=== PATIENT | female | born 1990 | race Caucasian/White ===

== ENCOUNTER → 2016-10-15 | Outpatient (CLI) | payer MEDICAID | END | disposition home or self-care (01) | LOC: RADECHMAIN 12:06 | PROVIDERS: ATTEND Family Medicine | DX: R00.2 Palpitations (principal) | CPT/HCPCS: 93225; 93226 ==

== ENCOUNTER → 2019-06-25 | Outpatient (CLI) | payer MEDICAID ==
[2019-06-25 17:21] LABS: HCT 46.1 % (34.0-46.0); HGB 15.5 gm/dL (11.4-16.0); MCH 30.7 pg (25.0-35.0); MCHC 33.6 g/dL (31.0-37.0); MCV 91.4 fL (80.0-100.0); Mean Platelet Volume 6.3; Platelet Count 516 k/uL (150-450); RBC 5.05 m/uL (3.80-5.40); RDW 12.6 % (11.5-15.5); WBC 12.8 k/uL (3.8-10.6)
[2019-06-26 00:20] LABS: African American GFR (CKD) 100.8 (60.0-200.0); Albumin 4.8 g/dL (3.80-4.90); Albumin/Globulin Ratio 1.85 (1.60-3.17); Anion Gap 10.3 mmol/L (4.00-12.00); BUN/Creat Ratio 8.89 Ratio (12.00-20.00); Calcium 9.7 mg/dL (8.7-10.3); Carbon Dioxide 23.7 mmol/L (21.6-31.8); Chol/HDL Ratio 3.96; Globulin 2.6 g/dL (1.6-3.3); LDL Cholesterol,Calculated 120.8 mg/dL (0.0-131.0); Potassium 3.8 mmol/L (3.5-5.5); Total Bilirubin 0.3 mg/dL (0.2-1.2); Total Protein 7.4 g/dL (6.2-8.2); VLDL Calculation 18.2 mg/dL (5.00-40.00)
[2019-06-26 00:28] LABS: T4, Free (Free Thyroxine) 1.2 ng/dL (0.80-1.80)
[2019-06-26 01:58] LABS: Hemoglobin A1C 4.4 % (4.0-6.0)
== END | disposition home or self-care (01) ==
LOC: LABMAIN 14:31
PROVIDERS: ATTEND Family Medicine
DX: Z00.00 Encounter for general adult medical examination without abnormal findings (principal); D64.9 Anemia, unspecified; E03.9 Hypothyroidism, unspecified
CPT/HCPCS: 36415; 80053; 80061; 82306; 82607; 83036; 83540; 84439; 84443; 85027

== ENCOUNTER 2019-07-01 14:27 | Emergency (ER) | payer MEDICAID, OTHER ==
[2019-07-01 14:42] VITALS: BP 139/86; PULSE 89; RESP 18; TEMP 99.9
[2019-07-01] MEDS ORDERED: DIPH,PERTUS(ACELL)TETVAC-LF 0.5 ML VIAL IM ONE (15:36)
--- NOTE | 2019-07-01 15:36 | ED ---
General Adult HPI - General Chief complaint: Needlestick/Exposure Stated complaint: [facility]-Needlestick Time Seen by Provider: 07/01/19 14:43 Source: patient, RN notes reviewed Mode of arrival: ambulatory Limitations: no limitations - History of Present Illness Initial comments: This is a 28-year-old female who was stuck with a needle just prior to arrival. The needle being his back and other staff member that had been used for anesthesia. Patient states her last tetanus shot was about 12 years ago. She denies any other than minimal discomfort to the finger that was stuck. This is on the right hand fifth finger dorsal aspect. No other injuries no other modifying factors - Related Data Home Medications Medication Instructions Recorded Confirmed Levothyroxine Sodium [Synthroid] 50 mcg PO DAILY 10/26/15 10/26/15 buPROPion XL [Wellbutrin Xl] 150 mg PO DAILY 10/26/15 10/26/15 Previous Rx's Medication Instructions Recorded Ondansetron Odt [Zofran Odt] 4 mg PO Q6HR PRN #12 tab 10/27/15 Promethazine [Phenergan] 25 mg PO Q6HR PRN #20 tablet 10/27/15 Allergies Allergy/AdvReac Type Severity Reaction Status Date / Time No Known Allergies Allergy Verified 07/01/19 14:39 Review of Systems ROS Statement: Those systems with pertinent positive or pertinent negative responses have been documented in the HPI. ROS Other: All systems not noted in ROS Statement are negative. Past Medical History Past Medical History: Thyroid Disorder History of Any Multi-Drug Resistant Organisms: None Reported Past Surgical History: No Surgical Hx Reported Additional Past Surgical History / Comment(s): bilateral knee replacement Past Psychological History: Depression Smoking Status: Never smoker Past Alcohol Use History: None Reported Past Drug Use History: None Reported General Exam - General Exam Comments Initial Comments: This a well-developed well-nourished awake alert oriented x 3 female Limitations: no limitations General appearance: alert, in no apparent distress Head exam: Present: atraumatic, normocephalic, normal inspection Extremities exam: Present: full ROM, normal capillary refill, other (Gemmation right upper extremity demonstrates for minimal evidence of a new stick injury to the dorsal lateral aspect of the distal fifth finger no active bleeding no formed by seen. No sensorimotor or vascular deficit) Neurological exam: Present: alert, oriented X3, CN II-XII intact Psychiatric exam: Present: normal affect, normal mood Skin exam: Present: warm, dry, normal color. Absent: rash Course Vital Signs 07/01/19 14:40 Temperature 99.9 F H Pulse Rate 89 Respiratory 18 Rate Blood Pressure 139/86 O2 Sat by Pulse 97 Oximetry Medical Decision Making - Medical Decision Making The patient will be discharged she will receive a tetanus shot. No other and she is indicated at this time Disposition Clinical Impression: Needle stick injury of finger of right hand Disposition: HOME SELF-CARE Condition: Good Instructions (If sedation given, give patient instructions): Needle Stick Injuries (ED) Is patient prescribed a controlled substance at d/c from ED?: No Referrals: Wu Julian DO [Primary Care Provider] - 1-2 days
== END 2019-07-01 16:06 | disposition home or self-care (01) ==
LOC: EC 14:27
DX: S69.91XA Unspecified injury of right wrist, hand and finger(s), initial encounter (principal); E07.9 Disorder of thyroid, unspecified; F32.9 Major depressive disorder, single episode, unspecified; Z79.890 Hormone replacement therapy; Z79.899 Other long term (current) drug therapy; Z96.653 Presence of artificial knee joint, bilateral; Z23 Encounter for immunization; W46.1XXA Contact with contaminated hypodermic needle, initial encounter; Y93.89 Activity, other specified
CPT/HCPCS: 90471; 90715; 99282

== ENCOUNTER → 2020-02-03 | Outpatient (CLI) | payer MEDICAID | END | disposition home or self-care (01) | LOC: LABWHC1 11:50 | PROVIDERS: ATTEND Pediatrics Pediatric Infectious Diseases | DX: Z11.59 Encounter for screening for other viral diseases (principal) ==

== ENCOUNTER → 2020-10-07 | Outpatient (CLI) | payer MEDICAID | END | disposition home or self-care (01) | LOC: LABMAIN 17:03 | PROVIDERS: ATTEND Emergency Medicine | DX: R07.9 Chest pain, unspecified (principal) | CPT/HCPCS: 36415; 84484; 85379 ==

== ENCOUNTER 2023-11-03 04:56 | Observation (INO) | payer BC, OTHER ==
[2023-11-03] MEDS: KETOROLAC 15 MG/ML 1 ML VIAL IVP STA (06:06)
[2023-11-03] MEDS: PANTOPRAZOLE 40 MG/10 ML VIAL IVP STA (06:06)
[2023-11-03] MEDS: FAMOTIDINE 20 MG/2 ML VIAL IV STA (06:09)
[2023-11-03] MEDS: SODIUM CHLORIDE 0.9% 1,000 ML IV STA (06:09)
--- NOTE | 2023-11-03 06:12 | ED ---
Abdominal Pain HPI <Mayank Robertson - Last Filed: 11/03/23 10:24> - General Source: patient Mode of arrival: ambulatory <Klarissa Peña - Last Filed: 11/09/23 15:28> - General Chief Complaint: Abdominal Pain Stated Complaint: Abdominal Pain Time Seen by Provider: 11/03/23 05:20 - History of Present Illness Initial Comments: 32-year-old female with past medical history of thyroid disorder who presents emergency department reporting epigastric pain. States that symptoms were sudden onset while she was at work. She had pressure in her epigastric region which radiated through to her back. Patient has associated nausea with multiple episodes of nonbilious, nonbloody vomit. She denies any chest pain or shortness of breath. Denies any current black or bloody stools. Does admit to bloody stools 3 weeks ago however self resolved. She denies any urinary complaints. No dysuria, hematuria or difficulty voiding. Possible concern for . She admits to taking Motrin or Aleve a few times per week. No history of peptic ulcers. Denies alcohol use. No fevers. No cough. No other alleviating, precipitating modifying factors (Klarissa Peña) - Related Data Home Medications Medication Instructions Recorded Confirmed Levothyroxine Sodium [Synthroid] 50 mcg PO DAILY 10/26/15 11/03/23 Dextroamphetamine/Amphetamine 25 mg PO DAILY 11/03/23 11/03/23 [Adderall Xr 25 mg Capsule] Ergocalciferol (Vitamin D2) 1,250 mcg PO CULVER 11/03/23 11/03/23 [Drisdol (50,000 Iu)] buPROPion XL [Wellbutrin XL] 300 mg PO DAILY 11/03/23 11/03/23 Previous Rx's Medication Instructions Recorded Pantoprazole [Protonix] 40 mg PO AC-BID #60 tab 11/05/23 Allergies Allergy/AdvReac Type Severity Reaction Status Date / Time No Known Allergies Allergy Verified 11/03/23 10:08 Review of Systems ROS Other: All systems not noted in ROS Statement are negative. <Mayank Robertson - Last Filed: 11/03/23 10:24> ROS Other: All systems not noted in ROS Statement are negative. <Klarissa Peña - Last Filed: 11/09/23 15:28> ROS Statement: Those systems with pertinent positive or pertinent negative responses have been documented in the HPI. Past Medical History Past Medical History: Thyroid Disorder History of Any Multi-Drug Resistant Organisms: None Reported Past Surgical History: No Surgical Hx Reported Additional Past Surgical History / Comment(s): bilateral knee replacement Past Psychological History: Depression Past Alcohol Use History: None Reported Past Drug Use History: None Reported <Klarissa Peña Last Filed: 11/09/23 15:28> General Exam General appearance: alert, in no apparent distress Head exam: Present: atraumatic, normocephalic, normal inspection Eye exam: Present: normal appearance, PERRL, EOMI. Absent: scleral icterus, conjunctival injection, periorbital swelling ENT exam: Present: normal exam, mucous membranes moist Neck exam: Present: normal inspection. Absent: tenderness, meningismus, lymphadenopathy Respiratory exam: Present: normal lung sounds bilaterally. Absent: respiratory distress, wheezes, rales, rhonchi, stridor Cardiovascular Exam: Present: regular rate, normal rhythm, normal heart sounds. Absent: systolic murmur, diastolic murmur, rubs, gallop, clicks GI/Abdominal exam: Present: soft, tenderness (Left upper quadrant), normal bowel sounds. Absent: distended, guarding, rebound, rigid Extremities exam: Present: normal inspection, full ROM, normal capillary refill. Absent: tenderness, pedal edema, joint swelling, calf tenderness Back exam: Present: normal inspection Neurological exam: Present: alert, oriented X3, CN II-XII intact Psychiatric exam: Present: normal affect, normal mood Skin exam: Present: warm, dry, intact, normal color. Absent: rash <Klarissa Peña - Last Filed: 11/09/23 15:28> Course Vital Signs 11/03/23 11/03/23 11/03/23 05:16 06:50 10:00 Temperature 99 F Pulse Rate 94 101 H 93 Respiratory 18 20 18 Rate Blood Pressure 145/96 140/62 138/94 O2 Sat by Pulse 100 98 98 Oximetry 11/03/23 11/03/23 13:00 16:38 Temperature 98.9 F 98.1 F Pulse Rate 85 65 Respiratory 18 18 Rate Blood Pressure 133/84 137/79 O2 Sat by Pulse 98 100 Oximetry Medical Decision Making - Lab Data Result diagrams: 11/03/23 05:58 11/03/23 05:58 <Mayank Robertson - Last Filed: 11/03/23 10:24> - Lab Data Result diagrams: 11/03/23 05:58 11/03/23 05:58 <Klarissa Peña - Last Filed: 11/09/23 15:28> - Medical Decision Making Was patient admitted / discharged? Hospital course, mention meds given and route, prescriptions, significant lab abnormalities, going to OR and other pertinent info. @ -I went back to reevaluate the patient she continued to have pain. I gave her more pain medications but the pain persisted so I spoke with Dr. Julian and he gloria kendell to admit the patient admit the patient to consult Dr. Orr Undiagnosed new problem with uncertain prognosis? @ -No Drug Therapy requiring intensive monitoring for toxicity (Heparin, Nitro, Insuli n, Cardizem)? @ -No Were any procedures done? @ -No Diagnosis/symptom? @ -Epigastric abdominal pain Acute, or Chronic, or Acute on Chronic? @ -Acute Uncomplicated (without systemic symptoms) or Complicated (systemic symptoms)? @ -Complicated Side effects of treatment? @ -No Exacerbation, Progression, or Severe Exacerbation? @ -No Poses a threat to life or bodily function? How? (Chest pain, USA, [place], pneumonia, PE, COPD, DKA, ARF, appy, cholecystitis, CVA, Diverticulitis, Homicidal, Suicidal, threat to staff... and all critical care pts) @ -No (Mayank Robertson) Was pt. sent in by a medical professional or institution (, PA, ASSOCIATE SOFTWARE DEVELOPER, urgent care, hospital, or custodial...) When possible be specific @ -No Did you speak to anyone other than the patient for history (EMS, parent, family, police, friend...)? What history was obtained from this source @ -No Did you review nursing and triage notes (agree or disagree)? Why? @ -I reviewed and agree with nursing and triage notes Were old charts reviewed (outside hosp., previous admission, EMS record, old EKG, old radiological studies, urgent care reports/EKG's, custodial records)? Report findings @ -No old charts were reviewed Differential Diagnosis (chest pain, altered mental status, abdominal pain women, abdominal pain men, vaginal bleeding, weakness, fever, dyspnea, syncope, headache, dizziness, GI bleed, back pain, seizure, CVA, palpatations, mental health, musculoskeletal)? @ -Differential Abdominal Pain Women: Appendicitis, Cholecystitis, diverticulosis, ischemic bowel, pancreatitis, hepatitis, UTI, gastroenteritis, AAA, incarcerated hernia, bowel obstruction, constipation, inflammatory bowel, hepatitis, peptic ulcer disease, splenic infarction, perforated viscus, vulvitis, ovarian torsion, PID, kidney stone, placenta abruption, this is not meant to be an all-inclusive list EKG interpreted by me (3pts min.). @ -Yes and demonstrates sinus rhythm with a rate of 89. MI interval 139. QRS 85. QTc of 386. No acute ST segment elevations or depressions X-rays interpreted by me (1pt min.). @ -None done CT interpreted by me (1pt min.). @ -None done U/S interpreted by me (1pt. min.). @ -Pending at this time What testing was considered but not performed or refused? (CT, X-rays, U/S, labs)? Why? @ -None What meds were considered but not given or refused? Why? @ -None Did you discuss the management of the patient with other professionals (professionals i.e. , PA, ASSOCIATE SOFTWARE DEVELOPER, lab, RT, psych nurse, social services coordinator, design engineer, teacher, navigating officer, case operator)? Give summary @ -Dr. Robertson who will take over care of the patient Was smoking cessation discussed for >3mins.? @ -No Was critical care preformed (if so, how long)? @ -No Were there social determinants of health that impacted care today? How? (Homelessness, low income, unemployed, alcoholism, drug addiction, transportation, low edu. Level, literacy, decrease access to med. care, shelter, rehab)? @ -No Was there de-escalation of care discussed even if they declined (Discuss DNR or withdrawal of care, Hospice)? DNR status @ -No What co-morbidities impacted this encounter? (DM, HTN, Smoking, COPD, CAD, Cancer, CVA, ARF, Chemo, Hep., AIDS, mental health diagnosis, sleep apnea, morbid obesity)? @ -None Was patient admitted / discharged? Hospital course, mention meds given and route, prescriptions, significant lab abnormalities, going to OR and other pertinent info. @ -Upon arrival patient placed into room 22. Thorough history and physical exam was performed. IV access was established. Laboratory studies are co nducted. Patient administered Toradol, Pepcid and Protonix. Ultrasound is ordered and pending at this time. Patient will be signed out to oncoming physician Dr. Robertson ([facility]) - Lab Data Lab Results 11/03/23 11/03/23 11/03/23 Range/Units 05:58 05:58 05:58 WBC 10.9 H (3.8-10.6) k/uL RBC 4.94 (3.80-5.40) m/uL Hgb 14.5 (11.4-16.0) gm/dL Hct 45.0 (34.0-46.0) % MCV 91.1 (80.0-100.0) fL MCH 29.4 (25.0-35.0) pg MCHC 32.3 (31.0-37.0) g/dL RDW 12.9 (11.5-15.5) % Plt Count 398 (150-450) k/uL MPV 6.7 Neutrophils % 88 % Lymphocytes % 7 % Monocytes % 3 % Eosinophils % 1 % Basophils % 1 % Neutrophils # 9.6 H (1.3-7.7) k/uL Lymphocytes # 0.8 L (1.0-4.8) k/uL Monocytes # 0.3 (0-1.0) k/uL Eosinophils # 0.1 (0-0.7) k/uL Basophils # 0.1 (0-0.2) k/uL Sodium (137-145) mmol/L Potassium (3.5-5.1) mmol/L Chloride (98-107) mmol/L Carbon Dioxide (22-30) mmol/L Anion Gap mmol/L BUN (7-17) mg/dL Creatinine (0.52-1.04) mg/dL Est GFR (CKD-EPI)AfAm (>60 ml/min/1.73 sqM) Est GFR (CKD-EPI)NonAf (>60 ml/min/1.73 sqM) Glucose (74-99) mg/dL Plasma Lactic Acid Brett (0.7-2.0) mmol/L Calcium (8.4-10.2) mg/dL Total Bilirubin (0.2-1.3) mg/dL AST (14-36) U/L ALT (4-34) U/L Alkaline Phosphatase (38-126) U/L Total Protein (6.3-8.2) g/dL Albumin (3.5-5.0) g/dL Lipase (23-300) U/L Urine Color Yellow Urine Appearance Clear (Clear) Urine pH 6.5 (5.0-8.0) Ur Specific [place] 1.023 (1.001-1.035) Urine Protein Trace H (Negative) Urine Glucose (UA) Negative (Negative) Urine Ketones Negative (Negative) Urine Blood Negative (Negative) Urine Nitrite Negative (Negative) Urine Bilirubin Negative (Negative) Urine Urobilinogen <2.0 (<2.0) mg/dL Ur Leukocyte Esterase Negative (Negative) Urine HCG, Qual Not Detected (Not Detectd) 11/03/23 11/03/23 Range/Units 05:58 05:58 WBC (3.8-10.6) k/uL RBC (3.80-5.40) m/uL Hgb (11.4-16.0) gm/dL Hct (34.0-46.0) % MCV (80.0-100.0) fL MCH (25.0-35.0) pg MCHC (31.0-37.0) g/dL RDW (11.5-15.5) % Plt Count (150-450) k/uL MPV Neutrophils % % Lymphocytes % % Monocytes % % Eosinophils % % Basophils % % Neutrophils # (1.3-7.7) k/uL Lymphocytes # (1.0-4.8) k/uL Monocytes # (0-1.0) k/uL Eosinophils # (0-0.7) k/uL Basophils # (0-0.2) k/uL Sodium 137 (137-145) mmol/L Potassium 4.2 (3.5-5.1) mmol/L Chloride 104 (98-107) mmol/L Carbon Dioxide 23 (22-30) mmol/L Anion Gap 10 mmol/L BUN 10 (7-17) mg/dL Creatinine 0.81 (0.52-1.04) mg/dL Est GFR (CKD-EPI)AfAm >90 (>60 ml/min/1.73 sqM) Est GFR (CKD-EPI)NonAf >90 (>60 ml/min/1.73 sqM) Glucose 92 (74-99) mg/dL Plasma Lactic Acid Brett 1.0 (0.7-2.0) mmol/L Calcium 9.5 (8.4-10.2) mg/dL Total Bilirubin 0.9 (0.2-1.3) mg/dL AST 34 (14-36) U/L ALT 44 H (4-34) U/L Alkaline Phosphatase 83 (38-126) U/L Total Protein 8.1 (6.3-8.2) g/dL Albumin 4.4 (3.5-5.0) g/dL Lipase 57 (23-300) U/L Urine Color Urine Appearance (Clear) Urine pH (5.0-8.0) Ur Specific [place] (1.001-1.035) Urine Protein (Negative) Urine Glucose (UA) (Negative) Urine Ketones (Negative) Urine Blood (Negative) Urine Nitrite (Negative) Urine Bilirubin (Negative) Urine Urobilinogen (<2.0) mg/dL Ur Leukocyte Esterase (Negative) Urine HCG, Qual (Not Detectd) Disposition Time of Disposition: 10:29 <Mayank Robertson - Last Filed: 11/03/23 10:24> <Klarissa Peña - Last Filed: 11/09/23 15:28> Clinical Impression: Epigastric abdominal pain Disposition: ADMITTED IP TO THIS HOSP
[2023-11-03 06:20] LABS: Basophils # (A) 0.1 k/uL (0-0.2); Basophils % (A) 1 %; Eosinophils # (A) 0.1 k/uL (0-0.7); Eosinophils % (A) 1 %; HGB 14.5 gm/dL (11.4-16.0); Lymphocytes # (A) 0.8 k/uL (1.0-4.8); Lymphocytes % (A) 7 %; MCH 29.4 pg (25.0-35.0); MCHC 32.3 g/dL (31.0-37.0); MCV 91.1 fL (80.0-100.0); Mean Platelet Volume 6.7; Monocytes # (A) 0.3 k/uL (0-1.0); Monocytes % (A) 3 %; Neutrophils # (A) 9.6 k/uL (1.3-7.7); Neutrophils % (A) 88 %; Platelet Count 398 k/uL (150-450); RBC 4.94 m/uL (3.80-5.40); RDW 12.9 % (11.5-15.5); WBC 10.9 k/uL (3.8-10.6)
[2023-11-03 06:21] LABS: Appearance,Urine Clear (Clear); Bilirubin,Urine Negative (Negative); Blood,Urine Negative (Negative); Color,Urine Yellow; Glucose,Urine (UA) Negative (Negative); Ketones,Urine Negative (Negative); Leukocyte Esterase,Urine Negative (Negative); Nitrite,Urine Negative (Negative); PH, Urine 6.5 (5.0-8.0); Protein,Urine Trace (Negative); Specific Gravity,Urine 1.023 (1.001-1.035); Urobilinogen,Urine <2.0 mg/dL (<2.0)
[2023-11-03] MEDS: ONDANSETRON 4 MG/2 ML VIAL IVP STA (06:56)
[2023-11-03 06:57] LABS: ALT 44 U/L (4-34); AST 34 U/L (14-36); African American GFR (CKD) >90 (>60 ml/min/1.73 sqM); Albumin 4.4 g/dL (3.5-5.0); Alkaline Phosphatase 83 U/L (38-126); Anion Gap 10 mmol/L; Blood Urea Nitrogen 10 mg/dL (7-17); Calcium 9.5 mg/dL (8.4-10.2); Carbon Dioxide 23 mmol/L (22-30); Chloride 104 mmol/L (98-107); Glucose 92 mg/dL (74-99); Lipase 57 U/L (23-300); Non-African American GFR(CKD) >90 (>60 ml/min/1.73 sqM); Potassium 4.2 mmol/L (3.5-5.1); Sodium 137 mmol/L (137-145); Total Bilirubin 0.9 mg/dL (0.2-1.3); Total Protein 8.1 g/dL (6.3-8.2)
[2023-11-03] MEDS: MORPHINE SULFATE 4 MG/ML SYRINGE IVP STA ×2 (06:57→08:52)
--- NOTE | 2023-11-03 07:32 | US ---
EXAMINATION TYPE: US gallbladder DATE OF EXAM: 11/03/2023 COMPARISON: NONE CLINICAL INDICATION: Female, 32 years old with history of epigastric pain; TECHNIQUE: Multiple sonographic images of the right upper quadrant are obtained. FINDINGS: EXAM MEASUREMENTS: Liver Length: 17.5 cm Gallbladder Wall: 0.2 cm CBD: 0.5 cm Right Kidney: 10.7 x 4.7 x 4.4 cm COVER MARKER NOTES: Pancreas: Tail obscured by overlying bowel gas Liver: Slightly enlarged Gallbladder: wnl Evidence for sonographic Funk's sign: No CBD: wnl Right Kidney: wnl IMPRESSION: 1. Hepatomegaly
[2023-11-03] MEDS: SODIUM CHLORIDE 0.9% 1,000 ML IV ONE (11:00)
--- NOTE | 2023-11-03 12:37 | P.CONS ---
History of Present Illness - Reason for Consult Consult date: 11/03/23 Epigastric pain Requesting physician: Mayank Robertson - Chief Complaint Epigastric pain - History of Present Illness This pleasant 32-year-old female who presented to the emergency department with complaints of epigastric pressure that proceeded to be a dull pain which she described as tight and crampy followed by vomiting and heart palpitations. Symptoms began yesterday morning and progressed throughout the day she began to have left upper quadrant pain with continued vomiting. States that she still has some epigastric discomfort, she has been having hiccups and after the hiccups she will have a sharp pain. She states that she has chronically loose bowel movements. She does report taken frequent Aleve for headaches and back pain. Denies any previous similar symptoms. No history of peptic ulcer disease. No previous endoscopic evaluations in the past. Labs WBC 10.9 hemoglobin 14.4 hematocrit 45 platelet count 398,000 sodium 137 potassium 4.2 BUN 10 creatinine 0.8 total bilirubin 0.9 AST 34 ALT 44 alkaline phosphatase 83 lipase 57 Gallbladder ultrasound reported hepatomegaly. Normal gallbladder. Review of Systems REVIEW OF SYSTEMS: CARDIOPULMONARY: No chest pain or shortness of breath. Gastrointestinal: Epigastric pain and left upper quadrant pain. Nausea and vomiting. No hematemesis, coffee-ground emesis. No rectal bleeding, or melena. GENITOURINARY: No dysuria or hematuria. MUSCULOSKELETAL: Reports normal range of motion. SKIN: No rashes. No jaundice. ENDOCRINE: No chills, fevers. No excessive weight gain or loss. No polydipsia or polyuria. PSYCHIATRIC: Unremarkable. NEUROLOGY: No change in mental status. Denies dizziness, headache. ENT: Vision unremarkable. CONSTITUTIONAL: No recent weight loss. No fever, chills, night sweats. Past Medical History Past Medical History: Thyroid Disorder History of Any Multi-Drug Resistant Organisms: None Reported Past Surgical History: No Surgical Hx Reported Additional Past Surgical History / Comment(s): bilateral knee replacement Past Psychological History: Depression Past Alcohol Use History: None Reported Past Drug Use History: None Reported Medications and Allergies Home Medications Medication Instructions Recorded Confirmed Type Levothyroxine Sodium [Synthroid] 50 mcg PO DAILY 10/25/11/03/23 History Dextroamphetamine/Amphetamine 25 mg PO DAILY 11/03/23 11/03/23 History [Adderall Xr 25 mg Capsule] Ergocalciferol (Vitamin D2) 1,250 mcg PO CULVER 11/03/23 11/03/23 History [Drisdol (50,000 Iu)] buPROPion XL [Wellbutrin XL] 300 mg PO DAILY 11/03/23 11/03/23 History Allergies Allergy/AdvReac Type Severity Reaction Status Date / Time No Known Allergies Allergy Verified 11/03/23 10:08 Physical Exam Vitals: Vital Signs Temp Pulse Resp BP Pulse Ox 11/03/23 06:50 101 H 20 140/62 98 11/03/23 05:16 99 F 94 18 145/96 100 Intake and Output 11/02/23 11/03/23 11/03/23 22:59 06:59 14:59 Other: Weight 124.738 kg General appearance: The patient is alert, oriented, appears in no acute distress. HET: Head is normocephalic and atraumatic. Conjunctiva pink. Sclera anicteric. Neck: Supple without lymphadenopathy. Trachea midline. Heart: Regular. Lungs: Equal expansion, normal respiratory effort. Abdomen: Soft, left upper quadrant tenderness, nondistended with bowel sounds. No guarding or rigidity. Skin: No rashes. No jaundice. Extremities: Normal skin color and turgor. No pedal edema. Neurological: No focal deficits. Alert and oriented x3. Results CBC & Chem 7: 11/03/23 05:58 11/03/23 05:58 Labs: Abnormal Lab Results - Last 24 Hours (Table) 11/03/23 11/03/23 11/03/23 Range/Units 05:58 05:58 05:58 WBC 10.9 H (3.8-10.6) k/uL Neutrophils # 9.6 H (1.3-7.7) k/uL Lymphocytes # 0.8 L (1.0-4.8) k/uL ALT 44 H (4-34) U/L Urine Protein Trace H (Negative) Comments: Gallbladder ultrasound reports hepatomegaly Assessment and Plan (1) Epigastric abdominal pain Narrative/Plan: 32-year-old female who presented with epigastric pain and pressure associated with nausea and vomiting and radiating over to the left upper quadrant as well. Does have chronic NSAID use for headaches and back pain. Unclear etiology of epigastric pain however possible etiologies could be peptic ulcer disease with chronic NSAID use. Will recommend proceeding with upper endoscopy. Continue with Protonix 40 mg daily. Current Visit: Yes Status: Acute Code(s): R10.13 - EPIGASTRIC PAIN SNOMED Code(s): 97899388 (2) Nausea and vomiting Current Visit: Yes Status: Acute Code(s): R11.2 - NAUSEA WITH VOMITING, UNSPECIFIED SNOMED Code(s): 00702032 (3) Left upper quadrant pain Current Visit: Yes Status: Acute Code(s): R10.12 - LEFT UPPER QUADRANT PAIN SNOMED Code(s): 830090943 Plan: 1. Continue symptomatic and supportive care 2. Protonix 40 mg daily 3. Clear liquid diet, n.p.o. after midnight 4. Avoid NSAIDs 5. Will proceed with upper endoscopy tomorrow Thank you for this consultation, we will continue to follow. Dr. Melisa Pope I agree with the dictator's note, documented as a scribe by Conchis Ricketts.
[2023-11-03] MEDS: MORPHINE SULFATE 2 MG/ML SYRINGE IVP PRN (14:59)
[2023-11-03] MEDS: ONDANSETRON 4 MG/2 ML VIAL IVP PRN (22:41)
[2023-11-04] MEDS: MORPHINE SULFATE 4 MG/ML SYRINGE IVP PRN (06:38)
--- NOTE | 2023-11-04 11:25 | P.HPIM ---
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 Reports on Friday night midepigastric pain radiated to her left rib cage. Attempted Toradol, relieved left rib cage pain but continued to have midepigastric pain accompanied by cramping. Normally takes NSAIDs for chronic back and joint pain. Denies chest pain, palpitations or shortness of breath. Denies history of peptic ulcer disease. Gallbladder ultrasound reported hepatomegaly, normal gallbladder and CBD.Afebrile, WBC 10.9, lactic acid 1. Hemoglobin 14.4,platelets 398 sodium 137 potassium 4.2 bicarb 23 BUN 10 creatinine 0.81 total bilirubin 0.9 AST 34 ALT 44 alkaline phosphatase 83 lipase 57. UA negative. Review of Systems ROS Statement: Those systems with pertinent positive or pertinent negative responses have been documented in the HPI. ROS Other: All systems not noted in ROS Statement are negative. Past Medical History Past Medical History: Thyroid Disorder History of Any Multi-Drug Resistant Organisms: None Reported Past Surgical History: No Surgical Hx Reported Additional Past Surgical History / Comment(s): bilateral knee replacement Past Anesthesia/Blood Transfusion Reactions: No Reported Reaction Past Psychological History: No Psychological Hx Reported, Depression Smoking Status: Never smoker Past Alcohol Use History: None Reported Past Drug Use History: None Reported Medications and Allergies Home Medications Medication Instructions Recorded Confirmed Type Levothyroxine Sodium [Synthroid] 50 mcg PO DAILY 10/26/15 11/03/23 History Dextroamphetamine/Amphetamine 25 mg PO DAILY 11/03/23 11/03/23 History [Adderall Xr 25 mg Capsule] Ergocalciferol (Vitamin D2) 1,250 mcg PO CULVER 11/03/23 11/03/23 History [Drisdol (50,000 Iu)] buPROPion XL [Wellbutrin XL] 300 mg PO DAILY 11/03/23 11/03/23 History Allergies Allergy/AdvReac Type Severity Reaction Status Date / Time No Known Allergies Allergy Verified 11/03/23 10:08 Physical Exam Vitals: Vital Signs Temp Pulse Pulse Resp BP BP Pulse Ox 11/04/23 07:00 98.2 F 80 17 117/80 97 11/04/23 01:32 98.2 F 87 16 130/69 98 11/03/23 19:39 98.2 F 82 16 164/99 100 11/03/23 16:38 98.1 F 65 18 137/79 100 11/03/23 13:00 98.9 F 85 18 133/84 98 Intake and Output 11/03/23 11/04/23 11/04/23 22:59 06:59 14:59 Other: # Voids 1 2 Weight 124.738 kg PHYSICAL EXAM: VITAL SIGNS: [As above] GENERAL: Alert and oriented x 3, sitting up in bed, no acute distress, no jaundice HEENT: Normocephalic, atraumatic conjunctivae normal. eyes normal. Sclera nonicteric. NECK: Supple, no JVD. No thyroid enlargement. No LNs CARDIOVASCULAR: S1, S2 regular.. No murmur RESPIRATION: Unlabored, equal air entry, clear to auscultation, bilateral bases diminished. ABDOMEN: Soft, nondistended, mid epigastric to left upper quadrant tenderness. No guarding. no masses palpable. No ascites, No hepatosplenomegaly.Bowel sounds heard. LEGS: No edema. no swelling NERVOUS SYSTEM: Cranial N 2-12 grossly normal. No focal deficits. Strength and sensation grossly intact.. Skin: Warm and dry, no rash Results CBC & Chem 7: 11/03/23 05:58 11/03/23 05:58 Thrombosis Risk Factor Assmnt - Choose All That Apply Any of the Below Risk Factors Present?: No Other Risk Factors: No Other congenital or acquired thrombophilia - If yes, enter type in comment: No Thrombosis Risk Factor Assessment Level: Very Low Risk Assessment and Plan Assessment: Epigastric, left upper quadrant abdominal pain accompanied with nausea and vomiting, taking NSAIDs Morbid obesity, BMI 47 Hypothyroidism History of depression Chronic back pain, history of bilateral knee replacements Plan: Continue on current medication regimen ,monitoring and symptomatic treatment. PPI for GI prophylaxis. No NSAIDs, n.p.o. for EGD today. Possible discharge home later today pending endoscopy results. The impression and plan of care has been dictated as directed. : I performed a history and examination of this patient, discussed the same with the dictator. I agree with the dictator's note ,documented as a scribe. Any additional findings or plans will be noted.
[2023-11-04] MEDS: IV FLUID CONTINUATION 1,000 ML IV ONE (13:17)
[2023-11-04] MEDS ORDERED: PROPOFOL 10 MG/ML 20 ML VIAL IV ONE (13:20)
[2023-11-04] MEDS ORDERED: LIDOCAINE 2% (PF) 20 MG/ML 5 ML VIAL ONE (13:20)
--- NOTE | 2023-11-04 13:30 | P.PCN ---
Date of Procedure: 11/04/23 Procedure(s) Performed: BRIEF HISTORY: Patient is a 32-year-old, pleasant, White pleasant female scheduled for an upper endoscopy as a part of evaluation of severe epigastric pain for the last 2 days' duration.. PROCEDURE PERFORMED: Esophagogastroduodenoscopy With biopsy. PREOPERATIVE DIAGNOSIS: Severe epigastric pain of 2 days' duration. IV sedation per anesthesia. PROCEDURE: After informed consent was obtained, the patient was brought into the endoscopy unit. IV sedation was administered by Anesthesia under continuous monitoring. Initially the Olympus GIF-140 video endoscope was inserted into the mouth. Esophagus intubated without any difficulty. It was gradually advanced into the stomach and duodenum and carefully examined. The bulb Had mild duodenitisand the second part of the duodenum appeared normal. The scope at this time was withdrawn to the stomach, adequately insufflated with air, and upon careful examination, mucosa of the antrum,Had mild gastritis and biopsies were done from this area. Mucosa of the body, cardia and the fundus appeared normal. The scope was then withdrawn into the esophagus. The GE junction was located at 39 cm from the incisors. The esophagus appeared normal. There were no erosions or ulcerations seen and the patient tolerated the procedure well. IMPRESSION: 1.Mild antral gastritis but no evidence of peptic ulcer disease 2.Mild duodenitis. RECOMMENDATIONS: The findings of this examination were discussed with the patient . Diet will be advanced as tolerated. Continue with Protonix 40 mg twice daily..
[2023-11-04] MEDS: PANTOPRAZOLE 40 MG TABLET PO SCH (17:53)
[2023-11-05 09:16] VITALS: BP 119/78; PULSE 67; RESP 17; TEMP 97.3
--- NOTE | 2023-11-05 11:26 | P.PN ---
Subjective Progress Note Date: 11/05/23 Principal diagnosis: Epigastric pain This pleasant 32-year-old female who presented to the emergency department with complaints of epigastric pressure that proceeded to be a dull pain which she described as tight and crampy followed by vomiting and heart palpitations. Symptoms began yesterday morning and progressed throughout the day she began to have left upper quadrant pain with continued vomiting. States that she still has some epigastric discomfort, she has been having hiccups and after the hiccups she will have a sharp pain. She states that she has chronically loose bowel movements. She does report taken frequent Aleve for headaches and back pain. Denies any previous similar symptoms. No history of peptic ulcer disease. No previous endoscopic evaluations in the past. Labs WBC 10.9 hemoglobin 14.4 hematocrit 45 platelet count 398,000 sodium 137 potassium 4.2 BUN 10 creatinine 0.8 total bilirubin 0.9 AST 34 ALT 44 alkaline phosphatase 83 lipase 57 Gallbladder ultrasound reported hepatomegaly. Normal gallbladder. 11/05/2023 Patient seen and examined today as a follow-up. Yesterday she underwent an upper endoscopy with findings of mild gastritis and mild duodenitis. Today she states abdominal pain is improved. She has no nausea or vomiting. She is tolerating small amounts of food. Plan is for discharge home today. Objective - Vital Signs Vital signs: Vital Signs Temp 97.3 F L 11/05/23 07:00 Pulse 67 11/05/23 07:00 Resp 17 11/05/23 07:00 BP 119/78 11/05/23 07:00 Pulse Ox 99 11/05/23 07:00 FiO2 Intake & Output 11/04/23 11/05/23 11/05/23 18:59 06:59 18:59 Intake Total 700 118 Balance 700 118 Intake: IV 100 Oral 600 118 Other: Voiding Method Toilet # Voids 2 1 - Exam General appearance: The patient is alert, oriented, appears in no acute distress. HET: Head is normocephalic and atraumatic. Conjunctiva pink. Sclera anicteric. Neck: Supple without lymphadenopathy. Abdomen: Soft, nontender, nondistended with bowel sounds. No guarding or rigidity. Extremities: Normal skin color and turgor. No pedal edema Skin: No rashes, no jaundice Neurological: No focal deficits. Alert and oriented. - Labs CBC & Chem 7: 11/03/23 05:58 11/03/23 05:58 Assessment and Plan (1) Epigastric abdominal pain Narrative/Plan: 32-year-old female who presented with epigastric pain and pressure associated with nausea and vomiting and radiating over to the left upper quadrant as well. Does have chronic NSAID use for headaches and back pain. Unclear etiology of ep igastric pain however possible etiologies could be peptic ulcer disease with chronic NSAID use. Will recommend proceeding with upper endoscopy. Continue with Protonix 40 mg daily. Patient is status post upper endoscopy with no significant findings to explain epigastric pain. No peptic ulcer disease noted. Recommend continuing Protonix 40 mg twice daily and following up with gastroenterology for biopsy results. Likely viral enteritis. Current Visit: Yes Status: Acute Code(s): R10.13 - EPIGASTRIC PAIN SNOMED Code(s): 90353303 (2) Nausea and vomiting Current Visit: Yes Status: Acute Code(s): R11.2 - NAUSEA WITH VOMITING, UNSPECIFIED SNOMED Code(s): 34934954 (3) Left upper quadrant pain Current Visit: Yes Status: Acute Code(s): R10.12 - LEFT UPPER QUADRANT PAIN SNOMED Code(s): 372186864 Plan: 1. Continue symptomatic and supportive care 2. Continue Protonix 40 mg twice daily 3. Diet as tolerated 4. Avoid NSAIDs 5. Patient is cleared for discharge Thank you for this consultation, we will sign off at this time. Patient instructed to call office or have follow-up appointment for biopsy results Dr. Melisa Pope I agree with the dictator's note, documented as a scribe by Conchis Ricketts.
== END 2023-11-05 11:18 | disposition home or self-care (01) ==
LOC: EC 04:56 → 6NMEDSUR 10:30
PROVIDERS: ADMIT Family Medicine; ATTEND Family Medicine
DX: R10.13 Epigastric pain (principal); K29.70 Gastritis, unspecified, without bleeding; K29.80 Duodenitis without bleeding; R16.0 Hepatomegaly, not elsewhere classified; E03.9 Hypothyroidism, unspecified; R10.12 Left upper quadrant pain; R00.2 Palpitations; R06.6 Hiccough; E66.01 Morbid (severe) obesity due to excess calories; Z68.42 Body mass index [BMI] 45.0-49.9, adult; G89.29 Other chronic pain; M54.9 Dorsalgia, unspecified; M25.50 Pain in unspecified joint; F32.A Depression, unspecified; Z79.1 Long term (current) use of non-steroidal anti-inflammatories (NSAID); Z79.890 Hormone replacement therapy; Z79.899 Other long term (current) drug therapy; Z96.653 Presence of artificial knee joint, bilateral
CPT/HCPCS: 96376 ×3; 96361; 96374; 96375; 99285; 36415; 93005; 88305; 80053; 83605; 83690; 85025; 81003; 81025; 76705; 43239; G0378 ×3; J2270 ×4; J2405 ×3; J3490; J1885; J2704; C9113; J2001

== ENCOUNTER → 2024-04-01 | Outpatient (CLI) | payer BC ==
[2024-04-02 01:14] LABS: Basophils # (A) 0.11 X 10*3/uL (0.00-0.10); Basophils % (A) 1.1 %; Eosinophils # (A) 0.08 X 10*3/uL (0.04-0.35); Eosinophils % (A) 0.8 %; HGB 14.6 g/dL (12.0-15.0); Lymphocytes % (A) 32.1 %; MCH 30.7 pg (27.0-32.0); MCHC 33.2 g/dL (32.0-37.0); MCV 92.4 FL (80.0-97.0); Mean Platelet Volume 9.5 FL (9.5-12.2); Monocytes # (A) 0.53 X 10*3/uL (0.20-1.00); Monocytes % (A) 5.3 %; NRBC Per 100 WBC 0 X 10*3/uL (0.00-0.01); Neutrophils # (A) 6.03 X 10*3/uL (1.80-7.70); Neutrophils % (A) 60.5 %; Platelet Count 497 X 10*3/uL (140-440); RBC 4.76 X 10*6/uL (4.10-5.20); RDW 12.4 % (11.5-14.5); WBC 9.97 X 10*3/uL (4.50-10.00)
[2024-04-02 01:57] LABS: ALT 26 U/L (8-44); AST 24 U/L (13-35); Albumin 4.5 g/dL (3.8-4.9); Albumin/Globulin Ratio 1.41 Ratio (1.60-3.17); Alkaline Phosphatase 85 U/L (41-126); Blood Urea Nitrogen 7.2 mg/dL (9.0-27.0); Calcium 9.6 mg/dL (8.7-10.3); Carbon Dioxide 23.4 mmol/L (21.6-31.8); Chloride 103 mmol/L (96-109); Chol/HDL Ratio 4.28 Ratio; Globulin 3.2 g/dL (1.6-3.3); Glucose 96 mg/dL (70-110); LDL Cholesterol,Calculated 118.5 mg/dL (0.0-131.0); Potassium 4.3 mmol/L (3.5-5.5); Sodium 139 mmol/L (135-145); T4, Free (Free Thyroxine) 1.06 ng/dL (0.80-1.80); Total Bilirubin 0.3 mg/dL (0.3-1.2); Total Protein 7.7 g/dL (6.2-8.2)
[2024-04-02 01:58] LABS: Luteinizing Hormone 5.9 mIU/mL
== END | disposition home or self-care (01) ==
LOC: LABWHC1 13:12
PROVIDERS: ATTEND Nurse Practitioner Family
DX: Z00.00 Encounter for general adult medical examination without abnormal findings (principal); F90.9 Attention-deficit hyperactivity disorder, unspecified type
CPT/HCPCS: 36415; 80053; 80061; 82626; 82670; 83001; 83002; 83036; 84144; 84146; 84402; 84439; 84443; 85025